=== PATIENT | male | born 1975 | race African-American/Black ===

== ENCOUNTER 2022-07-12 15:11 | Emergency (ER) | payer OTHER ==
[2022-07-12 15:47] VITALS: BP 129/84; PULSE 98; RESP 17; TEMP 98.1; BMI 25.0
[2022-07-12] MEDS ORDERED: DIPHTH,PERTUSS(ACELL),TET 0.5 ML DISP.SYRIN IM ONE ×2 (16:41→17:11)
[2022-07-12] MEDS ORDERED: IBUPROFEN 600 MG TABLET (FP) PO ONE ×2 (16:41→17:11)
[2022-07-12 18:07] LABS: EPI CELLS 26 /uL (0-25.1); HYALINE CASTS 0 /uL (0-3.1); URINE APPEARANCE CLEAR; URINE BACTERIA 242 /uL (0-1359); URINE BILIRUBIN NEGATIVE (NEGATIVE); URINE COLOR YELLOW; URINE GLUCOSE (UA) NEGATIVE (NEGATIVE); URINE KETONE TRACE (NEGATIVE); URINE LEUK ESTERASE TRACE (NEGATIVE); URINE NITRITE NEGATIVE (NEGATIVE); URINE PROTEIN NEGATIVE (NEGATIVE); URINE RBC 11 /uL (0-23.9); URINE WBC 27 /uL (0-25.8)
== END 2022-07-12 18:36 | disposition home or self-care (01) ==
LOC: JERFT 15:11
PROC: 3E0234Z Introduction of Serum, Toxoid and Vaccine into Muscle, Percutaneous Approach (ICD-10-PCS; principal; 2022-07-12)
DX: S82.091A Other fracture of right patella, initial encounter for closed fracture (principal); V18.0XXA Pedal cycle driver injured in noncollision transport accident in nontraffic accident, initial encounter
CPT/HCPCS: 72100-TC-FY; 73030-TC-RT-FY; 73562-TC-RT-FY; 81003; 90471; 90715; 99284-25

== ENCOUNTER 2022-07-26 08:36 | Day surgery (SDC) | payer OTHER ==
[2022-07-25 15:27] VITALS: BMI 27.4
[2022-07-26] MEDS ORDERED: PROPOFOL 40 ML ONE (09:05)
[2022-07-26] MEDS ORDERED: MIDAZOLAM HCL 2 MG/2 ML SINGLE DOSE VIAL ONE (11:18)
[2022-07-26] MEDS ORDERED: ROPIVACAINE HCL 0.5% 30ML VIAL ONE (11:22)
[2022-07-26] MEDS ORDERED: GLYCOPYRROLATE 0.2 MG/1 ML VIAL ONE (12:29)
[2022-07-26] MEDS ORDERED: TRANEXAMIC ACID 1000 MG/10 ML VIAL ONE (12:41)
[2022-07-26] MEDS ORDERED: PROMETHAZINE HCL 25 MG/1 ML VIAL IVPUSH PRN (14:03)
[2022-07-26] MEDS ORDERED: oxyCODONE HCL 5 MG TABLET PO PRN ×2 (14:03)
[2022-07-26] MEDS ORDERED: ONDANSETRON 4 MG/2 ML VIAL IVPUSH PRN (14:03)
[2022-07-26] MEDS ORDERED: FENTANYL CITRATE/PF 50 MCG/ML VIAL ONE ×4 (14:12→14:44)
[2022-07-26] MEDS ORDERED: ONDANSETRON 4 MG/2 ML VIAL ONE (14:13)
[2022-07-26] MEDS ORDERED: ACETAMINOPHEN INJECTION 100 ML IVPB ONE (14:17)
[2022-07-26] MEDS ORDERED: oxyCODONE HCL 5 MG TABLET ONE (15:05)
[2022-07-26 17:20] VITALS: BP 139/75; PULSE 58; RESP 16; TEMP 97.8
== END 2022-07-26 16:50 | disposition home or self-care (01) ==
LOC: FASU 08:36
PROVIDERS: ATTEND Orthopaedic Surgery Sports Medicine
PROC: 0QSD04Z Reposition Right Patella with Internal Fixation Device, Open Approach (ICD-10-PCS; principal; 2022-07-26 12:38)
DX: S82.001A Unspecified fracture of right patella, initial encounter for closed fracture (principal); X58.XXXA Exposure to other specified factors, initial encounter; Y93.9 Activity, unspecified; Y92.9 Unspecified place or not applicable
CPT/HCPCS: 94760; C1713